=== PATIENT | male | born 1965 | race Caucasian/White ===

== ENCOUNTER 2017-07-17 06:06 | Day surgery (SDC) | payer OTHER ==
[2017-07-16 15:57] VITALS: BMI 34.7
[2017-07-17] MEDS ORDERED: DEXAMETHASONE SOD PHOSPHATE 4 MG/1 ML VIAL ONE (07:39)
[2017-07-17] MEDS ORDERED: BUPIVACAINE HCL/PF 0.5% (5MG/ML) 10 ML VIAL ONE (07:40)
[2017-07-17] MEDS ORDERED: LIDOCAINE HCL 1%, 10 MG/ML (20ML VIAL) ONE (07:40)
[2017-07-17] MEDS ORDERED: MIDAZOLAM HCL 2 MG/2 ML SINGLE DOSE VIAL ONE (08:10)
[2017-07-17] MEDS ORDERED: SUCCINYLCHOLINE CHLORIDE 200 MG/10 ML VIAL ONE (08:15)
[2017-07-17] MEDS ORDERED: PROPOFOL 20 ML ONE (08:15)
[2017-07-17] MEDS ORDERED: ceFAZolin SODIUM 1 GM VIAL IVPB ONE (08:24)
[2017-07-17] MEDS ORDERED: ceFAZolin SODIUM 1 GM VIAL ONE (08:29)
[2017-07-17] MEDS ORDERED: oxyCODONE HCL 5 MG TABLET PO PRN (09:31)
[2017-07-17] MEDS ORDERED: ONDANSETRON 4 MG/2 ML VIAL IVPUSH PRN (09:31)
[2017-07-17] MEDS ORDERED: PROMETHAZINE HCL 25 MG/1 ML VIAL IVPUSH PRN (09:31)
[2017-07-17] MEDS ORDERED: LACTATED RINGERS SOLUTION 1,000 ML IV SCH (09:45)
[2017-07-17 10:11] VITALS: TEMP 97.8
[2017-07-17 11:01] VITALS: BP 136/86; PULSE 88
--- NOTE | 2017-07-17 14:02 | OP ---
Operative Note - Note: Operative Date: 07/17/17 Pre-Operative Diagnosis: hypertrophied condyles 3rd met right foot Operation: removal of hypertrophied condyles, partial met head removal Findings: hypertrophied condyles Implants: none Post-Operative Diagnosis: Same as Pre-op Surgeon: Charito Deluna Reading Interventionist: Poncho Newsome Anesthesia: Local, MAC Specimens Removed: bone Instrument used (Debridements only): kerry, elevator, mcglamary freer Drains & Tubes with Location: none Drains, Volume Out (mls): 0 Blood Volume Replaced (mls): 0 Fluid Volume Replaced (mls): 0 Operative Report Dictated: No
--- NOTE | 2017-07-20 12:16 | OP ---
DATE OF OPERATION: 07/17/2017 PREOPERATIVE DIAGNOSIS: Hypertrophied plantar condyles 3rd metatarsal. POSTOPERATIVE DIAGNOSIS: Hypertrophied plantar condyles 3rd metatarsal. PROCEDURE: Removal of plantar condyles 3rd metatarsal right foot. ANESTHESIA: Local with sedation. DESCRIPTION OF PROCEDURE: After noting all preoperative vital signs within normal limits and after the surgical consent was signed and witnessed, the patient was brought to the OR and placed on a table in supine position. An IV line had been started prior to the patient coming to the OR. Once the patient was in the OR, the patient was sedated and a local infiltrate was given in a Cruz block fashion around the 3rd metatarsophalangeal joint. Once the patient's foot was anesthetized, it was then prepped and draped in the usual sterile fashion. Once it was prepped and draped, the tourniquet that had been applied prior to the prepping and draping was elevated to 250 mmHg after exsanguinating the foot with an Esmarch bandage. Attention was then directed to the plantar aspect of the right foot over the 3rd metatarsophalangeal joint on the plantar aspect. An incision was created approximately 5 cm long in a lazy S fashion. This incision was deepened using sharp and blunt dissection to the level of the joint capsule. All avoidable vessels were ligated in the usual fashion. All other neurovascular structures were retracted out of the surgical site. At this time, the capsule was noted. Utilizing sharp and blunt dissection, exposure of the plantar condyles was achieved. Using a McGlamry elevator, the soft tissue was liberated. Once the soft tissue was liberated, utilizing the same McGlamry elevator, the plantar condyles were resected and sent down to Pathology. The area was remodeled using a bur. Copious amounts of sterile saline with antibiotic irrigation were used after that. The wound was then closed in layer beginning from 3-0 Vicryl at the subcutaneous layers, the next layer was 4-0 Vicryl in a simple interrupted suture fashion then skin closure was achieved using 3-0 nylon in a simple interrupted suture fashion. Adaptic that was soaked in Betadine was applied. Dry, sterile gauze and a Hilary dressing were then applied. The tourniquet was deflated, and capillary filling time was instantaneous to all 5 toes of the right foot. The patient returned to the recovery room with vital signs stable and vascular status intact. The patient tolerated the procedure well. SOFIYA Tran/[id number]
--- NOTE | 2017-07-28 16:51 | PATH ---
Surgical Pathology Report Patient Name: JARVIS FRASER [facility]. Rec. #: [id number] /Age/Gender: 1965 (Age: 51) / M Account: [id number] Location: [facility] SURGICAL Taken: 07/17/2017 Received: 07/17/2017 Reported: 07/28/2017 Physicians: Charito Deluna DPM Specimen(s) Received METATARSAL BONE RIGHT FOOT Clinical History Hypertrophy bone, metatarsal right foot Final Diagnosis METATARSAL BONE, FOOT, RIGHT, EXCISION: BONE WITH DEGENERATIVE CHANGES. Electronically Signed Nu Smiley M.D. Gross Description Received in formalin labeled "metatarsal bone right foot," is a 0.6 x 0.4 x 0.4 cm bran-yellow, irregular portion of bone. The specimen is bisected and entirely submitted in one cassette, following decalcification. /07/18/201707/18/2017
== END 2017-07-17 11:30 | disposition home or self-care (01) ==
LOC: JASU-SURG 06:06
PROVIDERS: ATTEND Podiatrist Foot Surgery
PROC: 0QBN0ZZ Excision of Right Metatarsal, Open Approach (ICD-10-PCS; principal; 2017-07-17 07:30)
DX: M89.30 Hypertrophy of bone, unspecified site (principal); M77.41 Metatarsalgia, right foot
CPT/HCPCS: 73630-TC-RT-FY; 82962; 87070; 87075; 87205; 88305-TC; 88311-TC; 94760

== ENCOUNTER 2017-08-26 13:51 | Inpatient (IN) | payer OTHER ==
[2017-08-26 19:14] VITALS: BMI 35.4
[2017-08-31 15:23] VITALS: BP 134/82; PULSE 86; TEMP 97.8
== END 2017-08-31 16:45 | disposition home or self-care (01) | DRG 857 ==
LOC: JER 13:51 → JERBED 16:56 → J6S 20:34
PROVIDERS: ADMIT Internal Medicine; ATTEND Nurse Practitioner Family
PROC: 0J9Q0ZZ Drainage of Right Foot Subcutaneous Tissue and Fascia, Open Approach (ICD-10-PCS; principal; 2017-08-27)
PROC: 02HV33Z Insertion of Infusion Device into Superior Vena Cava, Percutaneous Approach (ICD-10-PCS; 2017-08-31)
DX: T81.4XXA Infection following a procedure, initial encounter (principal); L02.611 Cutaneous abscess of right foot; L03.115 Cellulitis of right lower limb; E11.69 Type 2 diabetes mellitus with other specified complication; I10 Essential (primary) hypertension; E78.5 Hyperlipidemia, unspecified; L08.89 Other specified local infections of the skin and subcutaneous tissue; Y83.8 Other surgical procedures as the cause of abnormal reaction of the patient, or of later complication, without mention of misadventure at the time of the procedure; Y92.89 Other specified places as the place of occurrence of the external cause
CPT/HCPCS: 36415; 36569; 73630-TC-RT-FY; 77001-TC-FY; 80053; 82962; 83036; 83735; 84100; 85025; 85651; 86140; 87040; 87070; 87077; 87205; 88304-TC; 93005; 93010; 94760; 97116-GP; 97161-GP; 97164-GP; 99283-25; C1751; G0480

== ENCOUNTER 2022-04-09 10:19 | Inpatient (IN) | payer OTHER ==
[2022-04-09 10:29] VITALS: BMI 34.0
[2022-04-09] MEDS ORDERED: PIPERACILLIN/TAZOB 4.5 GM 4.5 GM in DEXTROSE 5%-WATER 100 ML IVPB ONE (10:52)
[2022-04-09] MEDS ORDERED: VANCOMYCIN 1,000 MG in DEXTROSE 5%-WATER - 250 ML IVPB ONE (10:52)
[2022-04-09] MEDS ORDERED: PIPERACILLIN/TAZOB 4.5 GM 4.5 GM/100 ML BAG IVPB ONE (11:26)
[2022-04-09] MEDS ORDERED: VANCOMYCIN/WATER FOR INJ (PEG) 1,000 MG/200 ML BAG IVPB ONE (11:27)
[2022-04-09 12:19] LABS: BASO % 0.9 % (0-2.0); EOS % 1.8 % (0-4.5); HEMATOCRIT 40.9 % (35.4-49); HEMOGLOBIN 13.8 GM/dL (11.7-16.9); LYMPH % 25.4 % (8-40); MCH 27.7 pg (25.7-33.7); MCHC 33.7 g/dl (32.0-35.9); MEAN PLT VOLUME 8.7 fl (7.5-11.1); NEUT % 63.9 % (42.8-82.8); PLATELET COUNT 177 10^3/uL (134-434); RBC 4.98 M/mm3 (4.00-5.60); RDW 13.8 % (11.9-15.9); WHITE BLOOD COUNT 4.3 K/mm3 (4.0-10.0)
[2022-04-09 12:30] LABS: INR 1.01 (0.83-1.09); PROTHROMBIN TIME (PATIENT) 11.6 SEC (9.7-13.0)
[2022-04-09 12:33] LABS: ACTIVATED PTT 32.5 SECONDS (25.2-36.5)
[2022-04-09 12:38] LABS: CALCIUM 9.2 mg/dL (8.5-10.1)
[2022-04-09 12:39] LABS: ALBUMIN 3.6 g/dl (3.4-5.0); BLOOD UREA NITROGEN 19.6 mg/dL (7-18)
[2022-04-09 12:42] LABS: CREATININE 1.6 mg/dL (0.55-1.3)
[2022-04-09 12:43] LABS: BILIRUBIN,TOTAL 0.4 mg/dL (0.2-1)
[2022-04-09 12:44] LABS: TOT PROT 7.5 g/dl (6.4-8.2)
[2022-04-09] MEDS ORDERED: SODIUM CHLORIDE 0.9% 500 ML INFUS.BAG IV ONE (12:50)
[2022-04-09 12:58] LABS: ERYTHROCYTE SEDIMENTATION RATE 17 mm/hr (0-20)
[2022-04-09] MEDS: PIPERACILLIN/TAZOB 2.25 GM 2.25 GM in DEXTROSE 5%-WATER - 50 ML IVPB SCH (18:09)
[2022-04-09] MEDS: INSULIN SLIDING SCALE (NOVOLOG) 1 VIAL SQ SCH (21:44)
[2022-04-09] MEDS: ATORVASTATIN CA 10 MG TABLET (FP) PO SCH (21:44)
[2022-04-09] MEDS: HEPARIN NA (PORCINE) 5,000 UNITS/ML 1ML VIAL SQ SCH (21:44)
[2022-04-10] MEDS: PIPERACILLIN/TAZOB 2.25 GM 2.25 GM in DEXTROSE 5%-WATER - 50 ML IVPB SCH ×3 (01:40→17:22)
[2022-04-10] MEDS: INSULIN SLIDING SCALE (NOVOLOG) 1 VIAL SQ SCH ×4 (06:16→22:02)
[2022-04-10] MEDS: HEPARIN NA (PORCINE) 5,000 UNITS/ML 1ML VIAL SQ SCH ×2 (10:44→22:02)
[2022-04-10] MEDS: LISINOPRIL 5 MG TABLET PO SCH (10:44)
[2022-04-10] MEDS: SILVER SULFADIAZINE 1% TOP CREAM 50 GM JAR TP SCH (10:46)
[2022-04-10 12:03] LABS: BASO % 0.6 % (0-2.0); EOS % 1.5 % (0-4.5); HEMATOCRIT 38.4 % (35.4-49); HEMOGLOBIN 12.9 GM/dL (11.7-16.9); LYMPH % 21.6 % (8-40); MCH 27.5 pg (25.7-33.7); MCHC 33.7 g/dl (32.0-35.9); MEAN CELL VOLUME 81.6 fl (80-96); MEAN PLT VOLUME 9.1 fl (7.5-11.1); MONO % 8.8 % (3.8-10.2); NEUT % 67.5 % (42.8-82.8); PLATELET COUNT 190 10^3/uL (134-434); RBC 4.71 M/mm3 (4.00-5.60); RDW 13.7 % (11.9-15.9)
[2022-04-10 12:47] LABS: ALBUMIN 3.2 g/dl (3.4-5.0); CALCIUM 9.2 mg/dL (8.5-10.1)
[2022-04-10 12:48] LABS: BLOOD UREA NITROGEN 18.3 mg/dL (7-18); CREATININE 1.3 mg/dL (0.55-1.3)
[2022-04-10 12:49] LABS: TOT PROT 6.8 g/dl (6.4-8.2)
[2022-04-10 12:50] LABS: BILIRUBIN,TOTAL 0.6 mg/dL (0.2-1)
[2022-04-10] MEDS ORDERED: SODIUM CHLORIDE 0.45% 1,000 ML IV SCH (13:00)
[2022-04-10 16:54] LABS: EPI CELLS 2 /uL (0-25.1); HYALINE CASTS 0 /uL (0-3.1); URINE APPEARANCE CLEAR; URINE BACTERIA 10 /uL (0-1359); URINE BILIRUBIN NEGATIVE (NEGATIVE); URINE COLOR YELLOW; URINE GLUCOSE (UA) 1+ (NEGATIVE); URINE KETONE NEGATIVE (NEGATIVE); URINE LEUK ESTERASE NEGATIVE (NEGATIVE); URINE NITRITE NEGATIVE (NEGATIVE); URINE PROTEIN 2+ (NEGATIVE); URINE RBC 8 /uL (0-23.9); URINE UROBILINOGEN 0.2 mg/dL (0.2-1.0); URINE WBC 2 /uL (0-25.8)
[2022-04-10] MEDS ORDERED: ACETAMINOPHEN 325 MG TABLET (FP) PO PRN (17:00)
[2022-04-10] MEDS: ATORVASTATIN CA 10 MG TABLET (FP) PO SCH (22:02)
[2022-04-11] MEDS: PIPERACILLIN/TAZOB 2.25 GM 2.25 GM in DEXTROSE 5%-WATER - 50 ML IVPB SCH ×3 (02:15→17:22)
[2022-04-11] MEDS: INSULIN SLIDING SCALE (NOVOLOG) 1 VIAL SQ SCH ×4 (06:10→21:50)
[2022-04-11] MEDS: SILVER SULFADIAZINE 1% TOP CREAM 50 GM JAR TP SCH (11:12)
[2022-04-11] MEDS: LISINOPRIL 5 MG TABLET PO SCH (11:12)
[2022-04-11] MEDS: HEPARIN NA (PORCINE) 5,000 UNITS/ML 1ML VIAL SQ SCH ×2 (11:12→21:50)
[2022-04-11] MEDS: ATORVASTATIN CA 10 MG TABLET (FP) PO SCH (21:50)
[2022-04-12] MEDS: PIPERACILLIN/TAZOB 2.25 GM 2.25 GM in DEXTROSE 5%-WATER - 50 ML IVPB SCH ×3 (02:27→18:13)
[2022-04-12] MEDS: INSULIN SLIDING SCALE (NOVOLOG) 1 VIAL SQ SCH ×4 (06:58→21:39)
[2022-04-12] MEDS: LISINOPRIL 5 MG TABLET PO SCH (09:37)
[2022-04-12] MEDS: HEPARIN NA (PORCINE) 5,000 UNITS/ML 1ML VIAL SQ SCH ×2 (09:37→21:40)
[2022-04-12] MEDS: COLLAGENASE CLOSTRIDIUM HIST. 30 GRAMS TUBE TP SCH (12:11)
[2022-04-12] MEDS: ATORVASTATIN CA 10 MG TABLET (FP) PO SCH (21:40)
[2022-04-13] MEDS: PIPERACILLIN/TAZOB 2.25 GM 2.25 GM in DEXTROSE 5%-WATER - 50 ML IVPB SCH ×3 (01:53→17:56)
[2022-04-13] MEDS: INSULIN SLIDING SCALE (NOVOLOG) 1 VIAL SQ SCH ×4 (06:12→21:37)
[2022-04-13] MEDS: LISINOPRIL 5 MG TABLET PO SCH (10:10)
[2022-04-13] MEDS: COLLAGENASE CLOSTRIDIUM HIST. 30 GRAMS TUBE TP SCH (10:10)
[2022-04-13 10:37] LABS: INR 1.02 (0.83-1.09); PROTHROMBIN TIME (PATIENT) 11.7 SEC (9.7-13.0)
[2022-04-13] MEDS: ATORVASTATIN CA 10 MG TABLET (FP) PO SCH (21:37)
[2022-04-14] MEDS: PIPERACILLIN/TAZOB 2.25 GM 2.25 GM in DEXTROSE 5%-WATER - 50 ML IVPB SCH ×3 (01:50→17:35)
[2022-04-14] MEDS: INSULIN SLIDING SCALE (NOVOLOG) 1 VIAL SQ SCH ×4 (06:19→21:54)
[2022-04-14] MEDS ORDERED: LIDOCAINE HCL 1%, 10 MG/ML (20ML VIAL) ONE (07:09)
[2022-04-14] MEDS ORDERED: GENTAMICIN SO4 80 MG/2 ML VIAL ONE (07:10)
[2022-04-14] MEDS ORDERED: BUPIVACAINE HCL/PF 0.5% (5MG/ML) 10 ML VIAL ONE (07:10)
[2022-04-14] MEDS ORDERED: PROPOFOL 40 ML ONE (07:19)
[2022-04-14] MEDS ORDERED: GENTAMICIN 80MG PREMIX BAG IVPB ONE (07:38)
[2022-04-14] MEDS ORDERED: MIDAZOLAM HCL 2 MG/2 ML SINGLE DOSE VIAL ONE (07:42)
[2022-04-14] MEDS ORDERED: PROPOFOL 20 ML ONE (07:42)
[2022-04-14] MEDS ORDERED: BUPIVACAINE HCL/PF 0.5% (5MG/ML) 10 ML VIAL IJ ONE (07:49)
[2022-04-14] MEDS ORDERED: LIDOCAINE HCL 1%, 10 MG/ML (20ML VIAL) INF ONE (07:49)
[2022-04-14] MEDS ORDERED: LACTATED RINGERS SOLUTION 1,000 ML IV SCH (08:30)
[2022-04-14] MEDS ORDERED: ACETAMINOPHEN 325 MG TABLET (FP) PO PRN (08:48)
[2022-04-14] MEDS ORDERED: PIPERACILLIN/TAZOB 2.25 GM 2.25 GM in DEXTROSE 5%-WATER - 50 ML IVPB SCH (10:00)
[2022-04-14] MEDS: LISINOPRIL 5 MG TABLET PO SCH (11:17)
[2022-04-14 11:47] LABS: BASO % 0.9 % (0-2.0); EOS % 1.5 % (0-4.5); HEMATOCRIT 37.5 % (35.4-49); HEMOGLOBIN 12.8 GM/dL (11.7-16.9); LYMPH % 31.3 % (8-40); MCH 27.7 pg (25.7-33.7); MEAN CELL VOLUME 81.4 fl (80-96); MEAN PLT VOLUME 8.5 fl (7.5-11.1); MONO % 6.7 % (3.8-10.2); NEUT % 59.6 % (42.8-82.8); PLATELET COUNT 180 10^3/uL (134-434); RDW 14.1 % (11.9-15.9)
[2022-04-14 12:00] LABS: CALCIUM 9.2 mg/dL (8.5-10.1)
[2022-04-14 12:01] LABS: ALBUMIN 3.2 g/dl (3.4-5.0); BLOOD UREA NITROGEN 21.1 mg/dL (7-18)
[2022-04-14 12:05] LABS: BILIRUBIN,TOTAL 0.6 mg/dL (0.2-1); CREATININE 1.4 mg/dL (0.55-1.3); TOT PROT 6.8 g/dl (6.4-8.2)
[2022-04-14] MEDS ORDERED: ATORVASTATIN CA 10 MG TABLET (FP) PO SCH (22:00)
[2022-04-15] MEDS: PIPERACILLIN/TAZOB 2.25 GM 2.25 GM in DEXTROSE 5%-WATER - 50 ML IVPB SCH (01:52)
[2022-04-15] MEDS: INSULIN SLIDING SCALE (NOVOLOG) 1 VIAL SQ SCH ×2 (06:12→11:57)
[2022-04-15 06:27] VITALS: TEMP 98.8
[2022-04-15] MEDS: LISINOPRIL 5 MG TABLET PO SCH (09:10)
[2022-04-15] MEDS ORDERED: AMOX TR/POT CLAV 875MG/125MG TABLETS (FP) PO ONE (11:00)
[2022-04-15 11:19] VITALS: BP 126/80; PULSE 96; RESP 16
[2022-04-15] MEDS ORDERED: LISINOPRIL 10 MG TABLET PO SCH (12:17)
== END 2022-04-15 12:43 | disposition home or self-care (01) | DRG 571 ==
LOC: JER 10:19 → JERBED 12:22 → J5S 15:21
PROVIDERS: ADMIT Internal Medicine; ATTEND Internal Medicine
PROC: 0JCQ0ZZ Extirpation of Matter from Right Foot Subcutaneous Tissue and Fascia, Open Approach (ICD-10-PCS; 2022-04-14)
PROC: 0JBQ0ZZ Excision of Right Foot Subcutaneous Tissue and Fascia, Open Approach (ICD-10-PCS; principal; 2022-04-14 08:30)
DX: L03.115 Cellulitis of right lower limb (principal); N17.9 Acute kidney failure, unspecified; T25.221A Burn of second degree of right foot, initial encounter; I12.9 Hypertensive chronic kidney disease with stage 1 through stage 4 chronic kidney disease, or unspecified chronic kidney disease; N18.9 Chronic kidney disease, unspecified; E11.9 Type 2 diabetes mellitus without complications; E78.5 Hyperlipidemia, unspecified; N28.1 Cyst of kidney, acquired; T14.8XXA Other injury of unspecified body region, initial encounter; X58.XXXA Exposure to other specified factors, initial encounter; Y93.9 Activity, unspecified; Y92.89 Other specified places as the place of occurrence of the external cause; Y99.9 Unspecified external cause status; R80.9 Proteinuria, unspecified
CPT/HCPCS: 36415; 73630-TC-RT-FY; 76775-TC; 80053; 81003; 82570; 82962; 83036; 84156; 85025; 85610; 85651; 85730; 86140; 86850; 86900; 86901; 87040; 88300-TC; 88304-TC; 93005; 93010; 94760; 99285-25; C9803-CS; J1644; U0003; U0005